=== PATIENT | male | born 1965 | race Caucasian/White ===

== ENCOUNTER 2023-12-12 14:27 | Inpatient (IN) | payer OTHER ==
[2023-12-12 15:37] VITALS: BMI 21.6
[2023-12-12] MEDS ORDERED: BISMUTH SUBSALICYLATE 524 MG/30 ML PO PRN (17:13)
[2023-12-12] MEDS ORDERED: IBUPROFEN 400 MG TABLET (FP) PO PRN (17:13)
[2023-12-12] MEDS ORDERED: hydrOXYzine PAMOATE 25 MG CAPSULE (FP) PO PRN (17:13)
[2023-12-12] MEDS ORDERED: DICYCLOMINE HCL 10 MG CAPSULE PO PRN (17:13)
[2023-12-12] MEDS ORDERED: NICOTINE POLACRILEX 2 MG GUM BUC PRN (17:13)
[2023-12-12] MEDS ORDERED: ACETAMINOPHEN 325 MG TABLET (FP) PO PRN (17:13)
[2023-12-12] MEDS ORDERED: IBUPROFEN 600 MG TABLET (FP) PO PRN (17:13)
[2023-12-12] MEDS ORDERED: BENZOCAINE/MENTHOL (CHLORASEPTIC ) LOZENGE MM PRN (17:13)
[2023-12-12] MEDS ORDERED: MAG HYDROX/AL HYDROX/SIMETH 30 ML UNIT-DOSE CUP PO PRN (17:13)
[2023-12-12] MEDS ORDERED: LOPERAMIDE HCL 2 MG CAPSULE PO PRN (17:13)
[2023-12-12] MEDS ORDERED: MAGNESIUM HYDROX 2400MG/30ML ORAL SUSPENSION 30 ML CUP PO PRN (17:13)
[2023-12-12] MEDS ORDERED: BENZONATATE 200 MG CAPSULE PO PRN (17:13)
[2023-12-12] MEDS ORDERED: guaiFENesin 600 MG TABLET.ER (FP) PO PRN (17:13)
[2023-12-12] MEDS ORDERED: ONDANSETRON *ODT* 4 MG TABLET SL PRN (17:13)
[2023-12-12] MEDS ORDERED: POLYETHYLENE GLYCOL (HEALTHYLAX) 3350 17 GM PACKET PO PRN (17:13)
[2023-12-12] MEDS: ASPIRIN COATED 81 MG TABLET.EC PO SCH (18:54)
[2023-12-12] MEDS: MELATONIN 5 MG TABLETS PO SCH (22:14)
[2023-12-12] MEDS: THIAMINE HCL 100 MG TABLET (FP) PO SCH (22:14)
[2023-12-13] MEDS: PRENATAL VITAMINS W/ FOLIC ACID TABLET (FP) PO SCH (10:25)
[2023-12-13] MEDS ORDERED: diazePAM 5 MG TABLET PO PRN (10:40)
[2023-12-13] MEDS: diazePAM 5 MG TABLET PO SCH (11:06)
[2023-12-13 15:30] LABS: POTASSIUM 4.6 mmol/L (3.5-5.1)
[2023-12-13 15:37] LABS: CALCIUM 8.4 mg/dL (8.5-10.1)
[2023-12-13 15:38] LABS: ALBUMIN 3.2 g/dl (3.4-5.0); BLOOD UREA NITROGEN 36.4 mg/dL (7-18)
[2023-12-13 15:41] LABS: CREATININE 1.5 mg/dL (0.55-1.3)
[2023-12-13 15:42] LABS: TOT PROT 7.3 g/dl (6.4-8.2)
[2023-12-13 15:43] LABS: BILIRUBIN,TOTAL 0.4 mg/dL (0.2-1)
[2023-12-13 15:44] LABS: HEMATOCRIT 36.1 % (35.4-49); HEMOGLOBIN 11.7 GM/dL (11.7-16.9); MCH 30.1 pg (25.7-33.7); MCHC 32.4 g/dl (32.0-35.9); MEAN CELL VOLUME 92.8 fl (80-96); MEAN PLT VOLUME 10.6 fl (7.5-11.1); PLATELET COUNT 318 10^3/uL (134-434); RBC 3.89 M/mm3 (4.00-5.60); RDW 14.9 % (11.9-15.9)
[2023-12-14] MEDS: METHOCARBAMOL 500 MG TABLET PO PRN (05:08)
[2023-12-14] MEDS: metoPROLOL SUCCINATE 25 MG TAB.SR.24H (FP) PO SCH (14:08)
[2023-12-14] MEDS: NIFEdipine E.R. 30 MG TABLET PO SCH (14:08)
[2023-12-14] MEDS: ASPIRIN 81 MG CHEWABLE TABLETS PO SCH (14:08)
[2023-12-14] MEDS: EMPAGLIFLOZIN (JARDIANCE) 10 MG TABLET PO SCH (14:41)
[2023-12-14] MEDS: ATORVASTATIN CA 80 MG TABLET (FP) PO SCH (22:31)
[2023-12-15] MEDS: diazePAM 5 MG TABLET PO SCH (05:57)
[2023-12-16] MEDS: diazePAM 5 MG TABLET PO SCH (05:56)
[2023-12-16 12:53] VITALS: BP 116/70; PULSE 65; RESP 18; TEMP 97.5
[2023-12-17] MEDS ORDERED: diazePAM 5 MG TABLET PO ONE (06:00)
== END 2023-12-16 11:35 | disposition left against medical advice (07) | DRG 770 ==
LOC: YASAS 14:27 → Y3N 17:40
PROVIDERS: ADMIT Allergy & Immunology; ATTEND Surgery
PROC: HZ2ZZZZ Detoxification Services for Substance Abuse Treatment (ICD-10-PCS; principal; 2023-12-12)
DX: F10.230 Alcohol dependence with withdrawal, uncomplicated (principal); F17.210 Nicotine dependence, cigarettes, uncomplicated; E78.5 Hyperlipidemia, unspecified; I10 Essential (primary) hypertension; Z59.00 Homelessness unspecified
CPT/HCPCS: 36415; 71045-TC-FY; 80053; 82962; 85027; 86780; 93005; 93010

== ENCOUNTER 2024-01-11 19:40 | Inpatient (IN) | payer BC, OTHER ==
[2024-01-11 20:04] VITALS: BMI 21.9
[2024-01-11] MEDS ORDERED: BISMUTH SUBSALICYLATE 524 MG/30 ML PO PRN (21:01)
[2024-01-11] MEDS ORDERED: IBUPROFEN 600 MG TABLET (FP) PO PRN (21:01)
[2024-01-11] MEDS ORDERED: MAGNESIUM HYDROX 2400MG/30ML ORAL SUSPENSION 30 ML CUP PO PRN (21:01)
[2024-01-11] MEDS ORDERED: DICYCLOMINE HCL 10 MG CAPSULE PO PRN (21:01)
[2024-01-11] MEDS ORDERED: BENZOCAINE/MENTHOL (CHLORASEPTIC ) LOZENGE MM PRN (21:01)
[2024-01-11] MEDS ORDERED: POLYETHYLENE GLYCOL (HEALTHYLAX) 3350 17 GM PACKET PO PRN (21:01)
[2024-01-11] MEDS ORDERED: NALOXONE HCL 0.4 MG/ML VIAL IM PRN (21:01)
[2024-01-11] MEDS ORDERED: NICOTINE POLACRILEX 2 MG GUM BUC PRN (21:01)
[2024-01-11] MEDS ORDERED: NALOXONE HCL (KLOXXADO) 8 MG SPRAY NS PRN (21:01)
[2024-01-11] MEDS ORDERED: ACETAMINOPHEN 325 MG TABLET (FP) PO PRN (21:01)
[2024-01-11] MEDS ORDERED: IBUPROFEN 400 MG TABLET (FP) PO PRN (21:01)
[2024-01-11] MEDS ORDERED: LOPERAMIDE HCL 2 MG CAPSULE PO PRN (21:01)
[2024-01-11] MEDS ORDERED: guaiFENesin 600 MG TABLET.ER (FP) PO PRN (21:01)
[2024-01-11] MEDS ORDERED: BENZONATATE 200 MG CAPSULE PO PRN (21:01)
[2024-01-11] MEDS ORDERED: ONDANSETRON *ODT* 4 MG TABLET SL PRN (21:01)
[2024-01-11] MEDS ORDERED: MAG HYDROX/AL HYDROX/SIMETH 30 ML UNIT-DOSE CUP PO PRN (21:01)
[2024-01-11] MEDS: METHOCARBAMOL 500 MG TABLET PO PRN (21:44)
[2024-01-11] MEDS: hydrOXYzine PAMOATE 25 MG CAPSULE (FP) PO PRN (21:45)
[2024-01-11] MEDS: THIAMINE 100 MG TABLET PO SCH (21:45)
[2024-01-11] MEDS: MELATONIN 5 MG TABLETS PO SCH (21:45)
[2024-01-12 09:27] LABS: HEMATOCRIT 35.1 % (35.4-49); MCH 31.4 pg (25.7-33.7); MCHC 34.3 g/dl (32.0-35.9); MEAN CELL VOLUME 91.7 fl (80-96); MEAN PLT VOLUME 9.8 fl (7.5-11.1); PLATELET COUNT 289 10^3/uL (134-434); RBC 3.83 M/mm3 (4.00-5.60); RDW 14.8 % (11.9-15.9); WHITE BLOOD COUNT 8.3 K/mm3 (4.0-10.0)
[2024-01-12 09:44] LABS: CHLORIDE 107 mmol/L (98-107); POTASSIUM 4.7 mmol/L (3.5-5.1); SODIUM 138 mmol/L (136-145)
[2024-01-12 09:56] LABS: GLUCOSE,RANDOM 94 mg/dL (74-106)
[2024-01-12 09:57] LABS: ALBUMIN 3.2 g/dl (3.4-5.0); CALCIUM 8.8 mg/dL (8.5-10.1)
[2024-01-12 09:58] LABS: ANION GAP 6 mmol/L (4-13); BLOOD UREA NITROGEN 39.6 mg/dL (7-18); CO2 24 mmol/L (21-32)
[2024-01-12 10:00] LABS: CREATININE 2.2 mg/dL (0.55-1.3); SGPT/ALT 15 U/L (13-61)
[2024-01-12 10:01] LABS: SGOT/AST 16 U/L (15-37)
[2024-01-12 10:02] LABS: BILIRUBIN,TOTAL 0.4 mg/dL (0.2-1); TOT PROT 7.2 g/dl (6.4-8.2)
[2024-01-12 10:03] LABS: ALK PHOS 94 U/L (45-117)
[2024-01-12] MEDS ORDERED: diazePAM 5 MG TABLET PO PRN (10:14)
[2024-01-12] MEDS ORDERED: metoPROLOL SUCCINATE 25 MG TAB.SR.24H (FP) PO SCH (10:30)
[2024-01-12] MEDS: metoPROLOL SUCCINATE 25 MG TAB.SR.24H (FP) PO SCH (10:52)
[2024-01-12] MEDS: PRENATAL VITAMINS W/ FOLIC ACID TABLET (FP) PO SCH (10:53)
[2024-01-12] MEDS: ASPIRIN 81 MG CHEWABLE TABLETS PO SCH (10:54)
[2024-01-12] MEDS: diazePAM 5 MG TABLET PO SCH (10:54)
[2024-01-12] MEDS: NICOTINE 14 MG/24 HOURS TOPICAL PATCH TD SCH (10:54)
[2024-01-12] MEDS: EMPAGLIFLOZIN (JARDIANCE) 10 MG TABLET PO SCH (11:42)
[2024-01-12] MEDS: ATORVASTATIN CA 80 MG TABLET (FP) PO SCH (22:27)
[2024-01-14] MEDS: diazePAM 5 MG TABLET PO SCH (05:54)
[2024-01-14 10:33] VITALS: BP 160/90; PULSE 74; RESP 18; TEMP 98.2
[2024-01-15] MEDS ORDERED: diazePAM 5 MG TABLET PO SCH (06:00)
[2024-01-16] MEDS ORDERED: diazePAM 5 MG TABLET PO ONE (06:00)
== END 2024-01-14 11:50 | disposition left against medical advice (07) | DRG 770 ==
LOC: YASAS 19:40 → Y3N 21:03
PROVIDERS: ADMIT Allergy & Immunology; ATTEND Surgery
PROC: HZ2ZZZZ Detoxification Services for Substance Abuse Treatment (ICD-10-PCS; principal; 2024-01-11)
DX: F10.230 Alcohol dependence with withdrawal, uncomplicated (principal); F17.210 Nicotine dependence, cigarettes, uncomplicated; E78.5 Hyperlipidemia, unspecified; I10 Essential (primary) hypertension; R76.11 Nonspecific reaction to tuberculin skin test without active tuberculosis
CPT/HCPCS: 36415; 80053; 80305; 80307; 85027; 86780; 93005; 93010

== ENCOUNTER 2024-03-02 13:17 | Inpatient (IN) | payer BC, OTHER ==
[2024-03-02 13:48] VITALS: BMI 22.4
[2024-03-02] MEDS ORDERED: POLYETHYLENE GLYCOL (HEALTHYLAX) 3350 17 GM PACKET PO PRN (14:02)
[2024-03-02] MEDS ORDERED: BENZONATATE 200 MG CAPSULE PO PRN (14:02)
[2024-03-02] MEDS ORDERED: guaiFENesin 600 MG TABLET.ER (FP) PO PRN (14:02)
[2024-03-02] MEDS ORDERED: ACETAMINOPHEN 325 MG TABLET (FP) PO PRN (14:02)
[2024-03-02] MEDS ORDERED: NALOXONE HCL 0.4 MG/ML VIAL IM PRN (14:02)
[2024-03-02] MEDS ORDERED: LOPERAMIDE HCL 2 MG CAPSULE PO PRN (14:02)
[2024-03-02] MEDS ORDERED: NALOXONE (NARCAN) HCL 4 MG/0.1 ML SPRAY NS PRN (14:02)
[2024-03-02] MEDS ORDERED: DICYCLOMINE HCL 10 MG CAPSULE PO PRN (14:02)
[2024-03-02] MEDS ORDERED: chlordiazePOXIDE HCL 25 MG CAPSULE PO PRN (14:02)
[2024-03-02] MEDS ORDERED: BENZOCAINE/MENTHOL (CHLORASEPTIC ) LOZENGE MM PRN (14:02)
[2024-03-02] MEDS ORDERED: IBUPROFEN 400 MG TABLET (FP) PO PRN (14:02)
[2024-03-02] MEDS ORDERED: MAGNESIUM HYDROX 2400MG/30ML ORAL SUSPENSION 30 ML CUP PO PRN (14:02)
[2024-03-02] MEDS ORDERED: IBUPROFEN 600 MG TABLET (FP) PO PRN (14:02)
[2024-03-02] MEDS ORDERED: MAG HYDROX/AL HYDROX/SIMETH 30 ML UNIT-DOSE CUP PO PRN (14:02)
[2024-03-02] MEDS ORDERED: ONDANSETRON *ODT* 4 MG TABLET SL PRN (14:02)
[2024-03-02] MEDS ORDERED: hydrALAZINE HCL 25 MG TABLET (FP) PO SCH (14:15)
[2024-03-02] MEDS: metoPROLOL SUCCINATE 25 MG TAB.SR.24H (FP) PO SCH (15:11)
[2024-03-02] MEDS: NIFEdipine E.R. 90 MG TABLET PO SCH (15:11)
[2024-03-02] MEDS ORDERED: LISINOPRIL 10 MG TABLET ONE (15:12)
[2024-03-02] MEDS ORDERED: ASPIRIN 81 MG CHEWABLE TABLETS ONE (15:12)
[2024-03-02] MEDS: LISINOPRIL 10 MG TABLET PO SCH (15:13)
[2024-03-02] MEDS: ASPIRIN 81 MG CHEWABLE TABLETS PO SCH (15:13)
[2024-03-02] MEDS: chlordiazePOXIDE HCL 25 MG CAPSULE PO SCH (17:18)
[2024-03-02] MEDS: ATORVASTATIN CA 80 MG TABLET (FP) PO SCH (22:14)
[2024-03-02] MEDS: THIAMINE 100 MG TABLET PO SCH (22:14)
[2024-03-02] MEDS: hydrALAZINE HCL 25 MG TABLET (FP) PO SCH (22:14)
[2024-03-02] MEDS: MELATONIN 5 MG TABLETS PO SCH (22:15)
[2024-03-02] MEDS: BISMUTH SUBSALICYLATE 524 MG/30 ML PO PRN (22:18)
[2024-03-03] MEDS ORDERED: diazePAM 5 MG TABLET PO PRN (09:15)
[2024-03-03] MEDS: PRENATAL VITAMINS W/ FOLIC ACID TABLET (FP) PO SCH (09:35)
[2024-03-03] MEDS: diazePAM 5 MG TABLET PO SCH (10:18)
[2024-03-03 11:45] LABS: POTASSIUM 4.3 mmol/L (3.5-5.1)
[2024-03-03 11:46] LABS: HEMATOCRIT 38.2 % (35.4-49); HEMOGLOBIN 12.7 GM/dL (11.7-16.9); MCH 31.1 pg (25.7-33.7); MCHC 33.2 g/dl (32.0-35.9); MEAN CELL VOLUME 93.6 fl (80-96); MEAN PLT VOLUME 10.4 fl (7.5-11.1); PLATELET COUNT 267 10^3/uL (134-434); RBC 4.09 M/mm3 (4.00-5.60); RDW 14.6 % (11.9-15.9); WHITE BLOOD COUNT 7.3 K/mm3 (4.0-10.0)
[2024-03-03 11:55] LABS: CREATININE 1.5 mg/dL (0.55-1.3)
[2024-03-03 11:56] LABS: TOT PROT 7.9 g/dl (6.4-8.2)
[2024-03-03 11:57] LABS: ALBUMIN 3.7 g/dl (3.4-5.0); BILIRUBIN,TOTAL 0.4 mg/dL (0.2-1); CALCIUM 8.6 mg/dL (8.5-10.1)
[2024-03-03 11:58] LABS: BLOOD UREA NITROGEN 23.5 mg/dL (7-18)
[2024-03-03 13:55] LABS: SYPHILIS W/ RPR CONF NON-REACTIVE (NONREACTIVE)
[2024-03-03 14:23] LABS: HIV INTERPRETATION NEGATIVE (NEGATIVE)
[2024-03-03] MEDS: LACTULOSE 20 GM/30 ML UDC (FOR ORAL USE ONLY) PO SCH (14:50)
[2024-03-03] MEDS: hydrOXYzine PAMOATE 25 MG CAPSULE (FP) PO PRN (22:51)
[2024-03-04] MEDS ORDERED: chlordiazePOXIDE HCL 25 MG CAPSULE PO SCH (05:00)
[2024-03-04 09:09] LABS: CREATININE 1.4 mg/dL (0.55-1.3)
[2024-03-04] MEDS: METHOCARBAMOL 500 MG TABLET PO PRN (22:41)
[2024-03-05] MEDS ORDERED: chlordiazePOXIDE HCL 10 MG CAPSULE PO PRN
[2024-03-05] MEDS ORDERED: chlordiazePOXIDE HCL 10 MG CAPSULE PO SCH (05:00)
[2024-03-05] MEDS: diazePAM 5 MG TABLET PO SCH (06:43)
[2024-03-06] MEDS ORDERED: chlordiazePOXIDE HCL 10 MG CAPSULE PO SCH (05:00)
[2024-03-06] MEDS: diazePAM 5 MG TABLET PO SCH (09:50)
[2024-03-07] MEDS ORDERED: chlordiazePOXIDE HCL 10 MG CAPSULE PO ONE (05:00)
[2024-03-07] MEDS: diazePAM 5 MG TABLET PO ONE (06:10)
[2024-03-07 06:44] VITALS: RESP 16
[2024-03-07 08:58] VITALS: BP 135/73; PULSE 46; TEMP 97.8
== END 2024-03-07 09:09 | disposition home or self-care (01) | DRG 773 ==
LOC: YASAS 13:17 → Y6N 15:03
PROVIDERS: ADMIT Allergy & Immunology; ATTEND Surgery
PROC: HZ2ZZZZ Detoxification Services for Substance Abuse Treatment (ICD-10-PCS; principal; 2024-03-02)
DX: F10.230 Alcohol dependence with withdrawal, uncomplicated (principal); F11.23 Opioid dependence with withdrawal; F17.213 Nicotine dependence, cigarettes, with withdrawal; E78.5 Hyperlipidemia, unspecified; I10 Essential (primary) hypertension; R76.11 Nonspecific reaction to tuberculin skin test without active tuberculosis; R79.89 Other specified abnormal findings of blood chemistry
CPT/HCPCS: 36415; 80053; 80305; 80307; 82140; 82565; 83036; 84520; 85027; 86780; 86803; 87389; 93005; 93010

== ENCOUNTER 2024-03-10 14:31 | Inpatient (IN) | payer OTHER ==
[2024-03-10 15:38] VITALS: BMI 23.1
[2024-03-10] MEDS ORDERED: POLYETHYLENE GLYCOL (HEALTHYLAX) 3350 17 GM PACKET PO PRN (15:39)
[2024-03-10] MEDS ORDERED: IBUPROFEN 600 MG TABLET (FP) PO PRN (15:39)
[2024-03-10] MEDS ORDERED: LOPERAMIDE HCL 2 MG CAPSULE PO PRN (15:39)
[2024-03-10] MEDS ORDERED: IBUPROFEN 400 MG TABLET (FP) PO PRN (15:39)
[2024-03-10] MEDS ORDERED: NALOXONE HCL 0.4 MG/ML VIAL IM PRN (15:39)
[2024-03-10] MEDS ORDERED: MAGNESIUM HYDROX 2400MG/30ML ORAL SUSPENSION 30 ML CUP PO PRN (15:39)
[2024-03-10] MEDS ORDERED: NALOXONE (NARCAN) HCL 4 MG/0.1 ML SPRAY NS PRN (15:39)
[2024-03-10] MEDS ORDERED: ACETAMINOPHEN 325 MG TABLET (FP) PO PRN (15:39)
[2024-03-10] MEDS ORDERED: BENZONATATE 200 MG CAPSULE PO PRN (15:39)
[2024-03-10] MEDS ORDERED: guaiFENesin 600 MG TABLET.ER (FP) PO PRN (15:39)
[2024-03-10] MEDS ORDERED: MAG HYDROX/AL HYDROX/SIMETH 30 ML UNIT-DOSE CUP PO PRN (15:39)
[2024-03-10] MEDS ORDERED: BENZOCAINE/MENTHOL (CHLORASEPTIC ) LOZENGE MM PRN (15:39)
[2024-03-10] MEDS: PRENATAL VITAMINS W/ FOLIC ACID TABLET (FP) PO SCH (16:41)
[2024-03-10] MEDS: LACTULOSE 20 GM/30 ML UDC (FOR ORAL USE ONLY) PO SCH (17:29)
[2024-03-10] MEDS: hydrALAZINE HCL 25 MG TABLET (FP) PO SCH (21:33)
[2024-03-10] MEDS: THIAMINE 100 MG TABLET PO SCH (21:33)
[2024-03-10] MEDS: MELATONIN 5 MG TABLETS PO SCH (21:34)
[2024-03-10] MEDS: hydrOXYzine PAMOATE 25 MG CAPSULE (FP) PO PRN (21:34)
[2024-03-11] MEDS: NIFEdipine E.R. 90 MG TABLET PO SCH (09:18)
[2024-03-11] MEDS: LISINOPRIL 10 MG TABLET PO SCH (09:18)
[2024-03-11] MEDS: metoPROLOL SUCCINATE 25 MG TAB.SR.24H (FP) PO SCH (09:18)
[2024-03-11] MEDS: ASPIRIN 81 MG CHEWABLE TABLETS PO SCH (09:18)
[2024-03-11 11:30] LABS: PH,URINE 5.5 (5.0-8.0); URINE APPEARANCE CLEAR; URINE BILIRUBIN NEGATIVE (NEGATIVE); URINE COLOR YELLOW; URINE GLUCOSE (UA) NEGATIVE (NEGATIVE); URINE KETONE NEGATIVE (NEGATIVE); URINE LEUK ESTERASE NEGATIVE (NEGATIVE); URINE NITRITE NEGATIVE (NEGATIVE); URINE PROTEIN NEGATIVE (NEGATIVE); URINE UROBILINOGEN 0.2 mg/dL (0.2-1.0)
[2024-03-11 11:33] LABS: HEMOGLOBIN 11.7 GM/dL (11.7-16.9); MCH 31.2 pg (25.7-33.7); MCHC 33.6 g/dl (32.0-35.9); MEAN CELL VOLUME 92.9 fl (80-96); PLATELET COUNT 290 10^3/uL (134-434); RBC 3.76 M/mm3 (4.00-5.60); RDW 14.6 % (11.9-15.9); WHITE BLOOD COUNT 7.8 K/mm3 (4.0-10.0)
[2024-03-11 11:44] LABS: CHLORIDE 112 mmol/L (98-107); POTASSIUM 4.5 mmol/L (3.5-5.1); SODIUM 143 mmol/L (136-145)
[2024-03-11 11:55] LABS: ANION GAP 5 mmol/L (4-13); BLOOD UREA NITROGEN 22.3 mg/dL (7-18); CALCIUM 8.5 mg/dL (8.5-10.1); CO2 25 mmol/L (21-32); GLUCOSE,RANDOM 106 mg/dL (74-106)
[2024-03-11 11:58] LABS: CREATININE 1.4 mg/dL (0.55-1.3); SGOT/AST 12 U/L (15-37); SGPT/ALT 16 U/L (13-61)
[2024-03-11 12:00] LABS: BILIRUBIN,TOTAL 0.4 mg/dL (0.2-1); TOT PROT 6.7 g/dl (6.4-8.2)
[2024-03-11 12:01] LABS: ALK PHOS 81 U/L (45-117)
[2024-03-11 12:27] LABS: SYPHILIS W/ RPR CONF NON-REACTIVE (NONREACTIVE)
[2024-03-11 14:05] LABS: HIV INTERPRETATION NEGATIVE (NEGATIVE)
[2024-03-15] MEDS ORDERED: LACTULOSE 20 GM/30 ML UDC (FOR ORAL USE ONLY) PO PRN (13:27)
[2024-03-15] MEDS: SUVOREXANT 10 MG TABLET PO SCH (21:21)
[2024-03-17] MEDS: RIFAXIMIN 550 MG TABLET PO SCH (21:37)
[2024-03-18] MEDS: hydrALAZINE HCL 25 MG TABLET (FP) PO SCH (21:19)
[2024-03-22 07:04] VITALS: BP 124/64; RESP 18; TEMP 96.9
[2024-03-22 07:17] VITALS: PULSE 42
[2024-03-22] MEDS ORDERED: SUVOREXANT 10 MG TABLET PO PRN (22:00)
== END 2024-03-22 07:21 | disposition home or self-care (01) | DRG 772 ==
LOC: YASAS 14:31 → Y3W 16:40
PROVIDERS: ADMIT Allergy & Immunology; ATTEND Psychiatry & Neurology Pain Medicine
PROC: HZ42ZZZ Group Counseling for Substance Abuse Treatment, Cognitive-Behavioral (ICD-10-PCS; principal; 2024-03-10)
DX: F10.20 Alcohol dependence, uncomplicated (principal); F14.20 Cocaine dependence, uncomplicated; F17.210 Nicotine dependence, cigarettes, uncomplicated; E78.5 Hyperlipidemia, unspecified; I10 Essential (primary) hypertension; R00.1 Bradycardia, unspecified; R76.11 Nonspecific reaction to tuberculin skin test without active tuberculosis; R79.89 Other specified abnormal findings of blood chemistry; Z59.00 Homelessness unspecified
CPT/HCPCS: 36415; 80053; 80305; 80307; 81003; 82140; 85027; 86780; 86803; 87389; 87811; 93005; 93010

== ENCOUNTER 2024-04-22 15:17 | Inpatient (IN) | payer BC, OTHER ==
[2024-04-22 16:47] VITALS: BMI 23.6
[2024-04-22] MEDS ORDERED: ACETAMINOPHEN 325 MG TABLET (FP) PO PRN (18:11)
[2024-04-22] MEDS ORDERED: MAGNESIUM HYDROX 2400MG/30ML ORAL SUSPENSION 30 ML CUP PO PRN (18:11)
[2024-04-22] MEDS ORDERED: BENZOCAINE/MENTHOL (CHLORASEPTIC ) LOZENGE MM PRN (18:11)
[2024-04-22] MEDS ORDERED: DICYCLOMINE HCL 10 MG CAPSULE PO PRN (18:11)
[2024-04-22] MEDS ORDERED: BENZONATATE 200 MG CAPSULE PO PRN (18:11)
[2024-04-22] MEDS ORDERED: guaiFENesin 600 MG TABLET.ER (FP) PO PRN (18:11)
[2024-04-22] MEDS ORDERED: MAG HYDROX/AL HYDROX/SIMETH 30 ML UNIT-DOSE CUP PO PRN (18:11)
[2024-04-22] MEDS ORDERED: POLYETHYLENE GLYCOL (HEALTHYLAX) 3350 17 GM PACKET PO PRN (18:11)
[2024-04-22] MEDS ORDERED: ONDANSETRON *ODT* 4 MG TABLET SL PRN (18:11)
[2024-04-22] MEDS: METHOCARBAMOL 500 MG TABLET PO PRN (19:21)
[2024-04-22] MEDS: LISINOPRIL 20 MG TABLET PO SCH (20:08)
[2024-04-22] MEDS: CLOPIDOGREL BISULFATE 75 MG TABLET (FP) PO SCH (20:23)
[2024-04-22] MEDS: THIAMINE 100 MG TABLET PO SCH (22:31)
[2024-04-22] MEDS: MELATONIN 5 MG TABLETS PO SCH (22:31)
[2024-04-22] MEDS: ATORVASTATIN CA 40 MG TABLET (FP) PO SCH (22:32)
[2024-04-23] MEDS: ASPIRIN 81 MG CHEWABLE TABLETS PO SCH (09:44)
[2024-04-23] MEDS: LOPERAMIDE HCL 2 MG CAPSULE PO PRN (09:44)
[2024-04-23] MEDS: NIFEdipine E.R. 90 MG TABLET PO SCH (09:44)
[2024-04-23] MEDS: PRENATAL VITAMINS W/ FOLIC ACID TABLET (FP) PO SCH (09:49)
[2024-04-23] MEDS ORDERED: diazePAM 5 MG TABLET PO PRN (10:32)
[2024-04-23] MEDS: diazePAM 5 MG TABLET PO SCH (10:46)
[2024-04-24] MEDS: diazePAM 5 MG TABLET PO SCH (06:23)
[2024-04-25] MEDS: diazePAM 5 MG TABLET PO SCH (05:53)
[2024-04-25 09:05] LABS: HEMATOCRIT 37.1 % (35.4-49); HEMOGLOBIN 12.4 GM/dL (11.7-16.9); MCH 30.6 pg (25.7-33.7); MCHC 33.4 g/dl (32.0-35.9); MEAN CELL VOLUME 91.7 fl (80-96); PLATELET COUNT 274 10^3/uL (134-434); RBC 4.05 M/mm3 (4.00-5.60); RDW 14.4 % (11.9-15.9); WHITE BLOOD COUNT 8.9 K/mm3 (4.0-10.0)
[2024-04-25 09:07] LABS: POTASSIUM 4.4 mmol/L (3.5-5.1)
[2024-04-25 09:12] LABS: ALBUMIN 3.1 g/dl (3.4-5.0); BLOOD UREA NITROGEN 20.9 mg/dL (7-18); CALCIUM 8.5 mg/dL (8.5-10.1)
[2024-04-25 09:15] LABS: CREATININE 1.3 mg/dL (0.55-1.3)
[2024-04-25 09:18] LABS: BILIRUBIN,TOTAL 0.4 mg/dL (0.2-1)
[2024-04-26] MEDS: diazePAM 5 MG TABLET PO ONE (06:03)
[2024-04-27 06:27] VITALS: TEMP 97.7
[2024-04-27 13:09] VITALS: BP 148/97; PULSE 73; RESP 16
== END 2024-04-27 14:01 | disposition other institution (70) | DRG 775 ==
LOC: YASAS 15:17 → Y3N 18:36
PROVIDERS: ADMIT Allergy & Immunology; ATTEND Psychiatry & Neurology Pain Medicine
PROC: HZ2ZZZZ Detoxification Services for Substance Abuse Treatment (ICD-10-PCS; principal; 2024-04-22)
DX: F10.230 Alcohol dependence with withdrawal, uncomplicated (principal); F10.220 Alcohol dependence with intoxication, uncomplicated; F17.210 Nicotine dependence, cigarettes, uncomplicated; I10 Essential (primary) hypertension; I25.10 Atherosclerotic heart disease of native coronary artery without angina pectoris; I25.2 Old myocardial infarction; G47.00 Insomnia, unspecified; Z91.013 Allergy to seafood; Z79.02 Long term (current) use of antithrombotics/antiplatelets; Z86.11 Personal history of tuberculosis; Z56.0 Unemployment, unspecified; Z59.00 Homelessness unspecified
CPT/HCPCS: 36415; 80053; 80305; 85027; 86780; 87811; 93005; 93010

== ENCOUNTER 2024-04-27 14:10 | Inpatient (IN) | payer OTHER ==
[2024-04-27] MEDS ORDERED: NALOXONE (NARCAN) HCL 4 MG/0.1 ML SPRAY NS PRN (14:23)
[2024-04-27] MEDS ORDERED: BENZONATATE 200 MG CAPSULE PO PRN (14:23)
[2024-04-27] MEDS ORDERED: MAGNESIUM HYDROX 2400MG/30ML ORAL SUSPENSION 30 ML CUP PO PRN (14:23)
[2024-04-27] MEDS ORDERED: IBUPROFEN 600 MG TABLET (FP) PO PRN (14:23)
[2024-04-27] MEDS ORDERED: MAG HYDROX/AL HYDROX/SIMETH 30 ML UNIT-DOSE CUP PO PRN (14:23)
[2024-04-27] MEDS ORDERED: guaiFENesin 600 MG TABLET.ER (FP) PO PRN (14:23)
[2024-04-27] MEDS ORDERED: ACETAMINOPHEN 325 MG TABLET (FP) PO PRN (14:23)
[2024-04-27] MEDS ORDERED: POLYETHYLENE GLYCOL (HEALTHYLAX) 3350 17 GM PACKET PO PRN (14:23)
[2024-04-27] MEDS ORDERED: BENZOCAINE/MENTHOL (CHLORASEPTIC ) LOZENGE MM PRN (14:23)
[2024-04-27] MEDS ORDERED: NALOXONE HCL 0.4 MG/ML VIAL IM PRN (14:23)
[2024-04-27] MEDS ORDERED: IBUPROFEN 400 MG TABLET (FP) PO PRN (14:23)
[2024-04-27] MEDS: ATORVASTATIN CA 40 MG TABLET (FP) PO SCH (21:31)
[2024-04-27] MEDS: MELATONIN 5 MG TABLETS PO SCH (21:32)
[2024-04-27] MEDS: traZODone HCL 50 MG TABLET (FP) PO SCH (21:32)
[2024-04-27] MEDS: THIAMINE 100 MG TABLET PO SCH (21:33)
[2024-04-28 00:23] LABS: EPI CELLS 4 /uL (0-25.1); HYALINE CASTS 0 /uL (0-3.1); PH,URINE 6.5 (5.0-8.0); URINE APPEARANCE CLEAR; URINE BACTERIA 3 /uL (0-1359); URINE BILIRUBIN NEGATIVE (NEGATIVE); URINE COLOR YELLOW; URINE GLUCOSE (UA) NEGATIVE (NEGATIVE); URINE KETONE NEGATIVE (NEGATIVE); URINE LEUK ESTERASE TRACE (NEGATIVE); URINE NITRITE NEGATIVE (NEGATIVE); URINE PROTEIN NEGATIVE (NEGATIVE); URINE RBC 1 /uL (0-23.9); URINE UROBILINOGEN 0.2 mg/dL (0.2-1.0); URINE WBC 50 /uL (0-25.8)
[2024-04-28] MEDS: PRENATAL VITAMINS W/ FOLIC ACID TABLET (FP) PO SCH (10:20)
[2024-04-28] MEDS: NIFEdipine E.R. 90 MG TABLET PO SCH (10:20)
[2024-04-28] MEDS: CLOPIDOGREL BISULFATE 75 MG TABLET (FP) PO SCH (10:22)
[2024-04-28] MEDS: metoPROLOL SUCCINATE 25 MG TAB.SR.24H (FP) PO SCH (10:22)
[2024-04-28] MEDS: ASPIRIN 81 MG CHEWABLE TABLETS PO SCH (10:22)
[2024-04-28] MEDS: LISINOPRIL 10 MG TABLET PO SCH (10:22)
[2024-04-28 11:09] LABS: POTASSIUM 4.5 mmol/L (3.5-5.1)
[2024-04-28 11:21] LABS: ALBUMIN 3.3 g/dl (3.4-5.0); BLOOD UREA NITROGEN 28.7 mg/dL (7-18); CALCIUM 8.7 mg/dL (8.5-10.1); HEMATOCRIT 36.6 % (35.4-49); HEMOGLOBIN 12.4 GM/dL (11.7-16.9); MCH 30.8 pg (25.7-33.7); MCHC 33.9 g/dl (32.0-35.9); MEAN CELL VOLUME 90.8 fl (80-96); MEAN PLT VOLUME 10.7 fl (7.5-11.1); PLATELET COUNT 254 10^3/uL (134-434); RBC 4.03 M/mm3 (4.00-5.60); RDW 14.3 % (11.9-15.9); WHITE BLOOD COUNT 6.4 K/mm3 (4.0-10.0)
[2024-04-28 11:22] LABS: BILIRUBIN,TOTAL 0.7 mg/dL (0.2-1); TOT PROT 7.4 g/dl (6.4-8.2)
[2024-04-28 11:25] LABS: CREATININE 1.4 mg/dL (0.55-1.3)
[2024-04-28 11:55] LABS: SYPHILIS W/ RPR CONF NON-REACTIVE (NONREACTIVE)
[2024-04-28] MEDS: hydrOXYzine PAMOATE 25 MG CAPSULE (FP) PO PRN (21:52)
[2024-05-05] MEDS: LOPERAMIDE HCL 2 MG CAPSULE PO PRN (08:46)
[2024-05-06 06:56] VITALS: BP 125/84; PULSE 77; RESP 16; TEMP 97.7
== END 2024-05-06 08:53 | disposition home or self-care (01) | DRG 772 ==
LOC: YASAS 14:10 → Y3NR 14:11 → Y3E 04-28 11:59
PROVIDERS: ADMIT Allergy & Immunology; ATTEND Psychiatry & Neurology Pain Medicine
PROC: HZ42ZZZ Group Counseling for Substance Abuse Treatment, Cognitive-Behavioral (ICD-10-PCS; principal; 2024-04-27)
DX: F10.20 Alcohol dependence, uncomplicated (principal); F14.20 Cocaine dependence, uncomplicated; F17.210 Nicotine dependence, cigarettes, uncomplicated; G47.00 Insomnia, unspecified; I25.10 Atherosclerotic heart disease of native coronary artery without angina pectoris; I10 Essential (primary) hypertension; I25.2 Old myocardial infarction; Z56.0 Unemployment, unspecified; Z59.00 Homelessness unspecified
CPT/HCPCS: 36415; 80053; 80307; 81003; 85027; 86780; 86803

== ENCOUNTER 2024-05-15 12:17 | Inpatient (IN) | payer OTHER ==
[2024-05-15 13:09] VITALS: BMI 23.7
[2024-05-15] MEDS ORDERED: BENZOCAINE/MENTHOL (CHLORASEPTIC ) LOZENGE MM PRN (16:33)
[2024-05-15] MEDS ORDERED: guaiFENesin 600 MG TABLET.ER (FP) PO PRN (16:33)
[2024-05-15] MEDS ORDERED: NALOXONE HCL 0.4 MG/ML VIAL IM PRN (16:33)
[2024-05-15] MEDS ORDERED: BISMUTH SUBSALICYLATE 524 MG/30 ML PO PRN (16:33)
[2024-05-15] MEDS ORDERED: IBUPROFEN 400 MG TABLET (FP) PO PRN (16:33)
[2024-05-15] MEDS ORDERED: MAG HYDROX/AL HYDROX/SIMETH 30 ML UNIT-DOSE CUP PO PRN (16:33)
[2024-05-15] MEDS ORDERED: BENZONATATE 200 MG CAPSULE PO PRN (16:33)
[2024-05-15] MEDS ORDERED: NALOXONE (NARCAN) HCL 4 MG/0.1 ML SPRAY NS PRN (16:33)
[2024-05-15] MEDS ORDERED: POLYETHYLENE GLYCOL (HEALTHYLAX) 3350 17 GM PACKET PO PRN (16:33)
[2024-05-15] MEDS ORDERED: DICYCLOMINE HCL 10 MG CAPSULE PO PRN (16:33)
[2024-05-15] MEDS ORDERED: IBUPROFEN 600 MG TABLET (FP) PO PRN (16:33)
[2024-05-15] MEDS ORDERED: MAGNESIUM HYDROX 2400MG/30ML ORAL SUSPENSION 30 ML CUP PO PRN (16:33)
[2024-05-15] MEDS ORDERED: ONDANSETRON *ODT* 4 MG TABLET SL PRN (16:33)
[2024-05-15] MEDS ORDERED: diazePAM 5 MG TABLET PO PRN (16:33)
[2024-05-15] MEDS ORDERED: LOPERAMIDE HCL 2 MG CAPSULE PO PRN (16:33)
[2024-05-15] MEDS ORDERED: ACETAMINOPHEN 325 MG TABLET (FP) PO PRN (16:33)
[2024-05-15] MEDS: LISINOPRIL 10 MG TABLET PO SCH (17:57)
[2024-05-15] MEDS: CLOPIDOGREL BISULFATE 75 MG TABLET (FP) PO SCH (20:01)
[2024-05-15] MEDS: NIFEdipine E.R. 90 MG TABLET PO SCH (20:02)
[2024-05-15] MEDS: diazePAM 5 MG TABLET PO SCH (23:09)
[2024-05-15] MEDS: THIAMINE 100 MG TABLET PO SCH (23:10)
[2024-05-15] MEDS: MELATONIN 5 MG TABLETS PO SCH (23:10)
[2024-05-15] MEDS: ATORVASTATIN CA 40 MG TABLET (FP) PO SCH (23:10)
[2024-05-16 09:23] LABS: HEMATOCRIT 35.5 % (35.4-49); HEMOGLOBIN 12.2 GM/dL (11.7-16.9); MCH 31.2 pg (25.7-33.7); MCHC 34.4 g/dl (32.0-35.9); MEAN CELL VOLUME 90.6 fl (80-96); MEAN PLT VOLUME 9.3 fl (7.5-11.1); PLATELET COUNT 265 10^3/uL (134-434); RBC 3.92 M/mm3 (4.00-5.60); RDW 14.5 % (11.9-15.9)
[2024-05-16 09:24] LABS: CHLORIDE 110 mmol/L (98-107); POTASSIUM 4.6 mmol/L (3.5-5.1); SODIUM 141 mmol/L (136-145)
[2024-05-16 09:26] LABS: CALCIUM 8.4 mg/dL (8.5-10.1)
[2024-05-16 09:27] LABS: ALBUMIN 3.1 g/dl (3.4-5.0); ANION GAP 5 mmol/L (4-13); BLOOD UREA NITROGEN 16.4 mg/dL (7-18); CO2 25 mmol/L (21-32); GLUCOSE,RANDOM 87 mg/dL (74-106)
[2024-05-16 09:30] LABS: CREATININE 1.3 mg/dL (0.55-1.3); SGOT/AST 15 U/L (15-37); SGPT/ALT 17 U/L (13-61)
[2024-05-16 09:31] LABS: BILIRUBIN,TOTAL 0.7 mg/dL (0.2-1); TOT PROT 7.1 g/dl (6.4-8.2)
[2024-05-16 09:33] LABS: ALK PHOS 98 U/L (45-117)
[2024-05-16] MEDS: PRENATAL VITAMINS W/ FOLIC ACID TABLET (FP) PO SCH (10:25)
[2024-05-16] MEDS: ASPIRIN 81 MG CHEWABLE TABLETS PO SCH (10:25)
[2024-05-16] MEDS: hydrOXYzine PAMOATE 25 MG CAPSULE (FP) PO PRN (17:05)
[2024-05-16] MEDS: cloNIDine HCL 0.1 MG TABLET PO PRN (18:07)
[2024-05-16] MEDS: METHOCARBAMOL 500 MG TABLET PO PRN (22:47)
[2024-05-17] MEDS: diazePAM 5 MG TABLET PO SCH (05:33)
[2024-05-17] MEDS: LISINOPRIL 10 MG TABLET PO SCH (10:49)
[2024-05-17] MEDS: amLODIPine BESYLATE 5 MG TABLET (FP) PO SCH (11:29)
[2024-05-18] MEDS: diazePAM 5 MG TABLET PO SCH (05:17)
[2024-05-18] MEDS: traZODone HCL 50 MG TABLET (FP) PO PRN (22:10)
[2024-05-19] MEDS: diazePAM 5 MG TABLET PO ONE (06:04)
[2024-05-20 06:06] VITALS: RESP 16
[2024-05-20 09:36] VITALS: BP 134/90; PULSE 60; TEMP 96.8
== END 2024-05-20 10:50 | disposition home or self-care (01) | DRG 774 ==
LOC: YASAS 12:17 → Y3N 21:06
PROVIDERS: ADMIT Allergy & Immunology; ATTEND Surgery
PROC: HZ2ZZZZ Detoxification Services for Substance Abuse Treatment (ICD-10-PCS; principal; 2024-05-15)
DX: F10.230 Alcohol dependence with withdrawal, uncomplicated (principal); F14.20 Cocaine dependence, uncomplicated; F17.210 Nicotine dependence, cigarettes, uncomplicated; F19.282 Other psychoactive substance dependence with psychoactive substance-induced sleep disorder; G47.00 Insomnia, unspecified; I25.10 Atherosclerotic heart disease of native coronary artery without angina pectoris; I10 Essential (primary) hypertension; I25.2 Old myocardial infarction; E78.5 Hyperlipidemia, unspecified; R79.89 Other specified abnormal findings of blood chemistry; Z86.11 Personal history of tuberculosis; Z59.00 Homelessness unspecified
CPT/HCPCS: 36415; 80053; 80305; 80307; 85027; 86780; 93005; 93010

== ENCOUNTER 2024-06-29 14:15 | Inpatient (IN) | payer OTHER ==
[2024-06-29 16:32] VITALS: BMI 22.9
[2024-06-29] MEDS ORDERED: LOPERAMIDE HCL 2 MG CAPSULE PO PRN (17:12)
[2024-06-29] MEDS ORDERED: IBUPROFEN 400 MG TABLET (FP) PO PRN (17:12)
[2024-06-29] MEDS ORDERED: BENZOCAINE/MENTHOL (CHLORASEPTIC ) LOZENGE MM PRN (17:12)
[2024-06-29] MEDS ORDERED: DICYCLOMINE HCL 10 MG CAPSULE PO PRN (17:12)
[2024-06-29] MEDS ORDERED: BENZONATATE 200 MG CAPSULE PO PRN (17:12)
[2024-06-29] MEDS ORDERED: ONDANSETRON *ODT* 4 MG TABLET SL PRN (17:12)
[2024-06-29] MEDS ORDERED: IBUPROFEN 600 MG TABLET (FP) PO PRN (17:12)
[2024-06-29] MEDS ORDERED: NICOTINE POLACRILEX 2 MG GUM BUC PRN (17:12)
[2024-06-29] MEDS ORDERED: MAG HYDROX/AL HYDROX/SIMETH 30 ML UNIT-DOSE CUP PO PRN (17:12)
[2024-06-29] MEDS ORDERED: MAGNESIUM HYDROX 2400MG/30ML ORAL SUSPENSION 30 ML CUP PO PRN (17:12)
[2024-06-29] MEDS ORDERED: NICOTINE POLACRILEX 2 MG LOZENGE BC PRN (17:12)
[2024-06-29] MEDS ORDERED: POLYETHYLENE GLYCOL (HEALTHYLAX) 3350 17 GM PACKET PO PRN (17:12)
[2024-06-29] MEDS ORDERED: ACETAMINOPHEN 325 MG TABLET (FP) PO PRN (17:12)
[2024-06-29] MEDS: MELATONIN 5 MG TABLETS PO SCH (22:23)
[2024-06-29] MEDS: METHOCARBAMOL 500 MG TABLET PO PRN (22:24)
[2024-06-29] MEDS: THIAMINE 100 MG TABLET PO SCH (22:24)
[2024-06-30] MEDS ORDERED: diazePAM 5 MG TABLET PO PRN (10:27)
[2024-06-30] MEDS: diazePAM 5 MG TABLET PO SCH (10:34)
[2024-06-30] MEDS: PRENATAL VITAMINS W/ FOLIC ACID TABLET (FP) PO SCH (10:34)
[2024-06-30] MEDS: guaiFENesin 600 MG TABLET.ER (FP) PO PRN (10:35)
[2024-06-30 14:43] LABS: HEMATOCRIT 36.9 % (35.4-49); HEMOGLOBIN 12.4 GM/dL (11.7-16.9); MCH 30.4 pg (25.7-33.7); MCHC 33.6 g/dl (32.0-35.9); MEAN CELL VOLUME 90.6 fl (80-96); MEAN PLT VOLUME 9.9 fl (7.5-11.1); PLATELET COUNT 287 10^3/uL (134-434); RBC 4.08 M/mm3 (4.00-5.60); RDW 15.6 % (11.9-15.9); WHITE BLOOD COUNT 6.8 K/mm3 (4.0-10.0)
[2024-06-30 15:04] LABS: CHLORIDE 116 mmol/L (98-107); POTASSIUM 4.6 mmol/L (3.5-5.1); SODIUM 143 mmol/L (136-145)
[2024-06-30 15:23] LABS: ALBUMIN 3.2 g/dl (3.4-5.0)
[2024-06-30 15:25] LABS: BLOOD UREA NITROGEN 21.5 mg/dL (7-18)
[2024-06-30 15:26] LABS: ANION GAP 5 mmol/L (4-13); CALCIUM 8.8 mg/dL (8.5-10.1); CO2 22 mmol/L (21-32)
[2024-06-30 15:27] LABS: GLUCOSE,RANDOM 92 mg/dL (74-106)
[2024-06-30 15:29] LABS: CREATININE 1.3 mg/dL (0.55-1.3); SGPT/ALT 14 U/L (13-61)
[2024-06-30 15:31] LABS: BILIRUBIN,TOTAL 0.3 mg/dL (0.2-1)
[2024-06-30 15:32] LABS: ALK PHOS 83 U/L (45-117); TOT PROT 6.6 g/dl (6.4-8.2)
[2024-06-30 15:50] LABS: SGOT/AST 11 U/L (15-37)
[2024-06-30] MEDS: BISMUTH SUBSALICYLATE 524 MG/30 ML PO PRN (17:15)
[2024-06-30] MEDS: hydrALAZINE HCL 25 MG TABLET (FP) PO ONE (20:59)
[2024-06-30] MEDS: traZODone HCL 50 MG TABLET (FP) PO SCH (22:20)
[2024-06-30] MEDS: ATORVASTATIN CA 40 MG TABLET (FP) PO SCH (22:20)
[2024-07-01] MEDS: NIFEdipine E.R. 90 MG TABLET PO SCH (09:38)
[2024-07-01] MEDS: metoPROLOL SUCCINATE 25 MG TAB.SR.24H (FP) PO SCH (09:38)
[2024-07-01] MEDS: LISINOPRIL 10 MG TABLET PO SCH (09:38)
[2024-07-01] MEDS: ASPIRIN 81 MG CHEWABLE TABLETS PO SCH (09:38)
[2024-07-01] MEDS: CLOPIDOGREL BISULFATE 75 MG TABLET (FP) PO SCH (09:38)
[2024-07-02] MEDS: diazePAM 5 MG TABLET PO SCH (05:26)
[2024-07-02] MEDS: AMOX TR/POT CLAV 875MG/125MG TABLETS (FP) PO SCH (17:31)
[2024-07-03] MEDS: diazePAM 5 MG TABLET PO SCH (06:06)
[2024-07-03] MEDS: P-EPHED 60MG/TRIPROLIDI 2.5MG TABLET PO PRN (14:49)
[2024-07-04 06:10] VITALS: TEMP 97.7
[2024-07-04] MEDS: diazePAM 5 MG TABLET PO ONE (06:20)
[2024-07-04 09:04] VITALS: BP 151/88; PULSE 73; RESP 19
== END 2024-07-04 09:27 | disposition home or self-care (01) | DRG 774 ==
LOC: YASAS 14:15 → Y3N 18:43
PROVIDERS: ADMIT Allergy & Immunology; ATTEND Allergy & Immunology
PROC: HZ2ZZZZ Detoxification Services for Substance Abuse Treatment (ICD-10-PCS; principal; 2024-06-29)
DX: F10.230 Alcohol dependence with withdrawal, uncomplicated (principal); F14.20 Cocaine dependence, uncomplicated; F17.210 Nicotine dependence, cigarettes, uncomplicated; F19.282 Other psychoactive substance dependence with psychoactive substance-induced sleep disorder; I25.10 Atherosclerotic heart disease of native coronary artery without angina pectoris; I10 Essential (primary) hypertension; I25.2 Old myocardial infarction; R05.9 Cough, unspecified
CPT/HCPCS: 0241U-QW; 36415; 71046-TC-FY; 80053; 80305; 80307; 85027; 87045; 87046

== ENCOUNTER 2024-07-21 11:35 | Inpatient (IN) | payer OTHER ==
[2024-07-21 11:58] VITALS: BMI 22.6
[2024-07-21] MEDS ORDERED: ACETAMINOPHEN 325 MG TABLET (FP) PO PRN (12:15)
[2024-07-21] MEDS ORDERED: BENZONATATE 200 MG CAPSULE PO PRN (12:15)
[2024-07-21] MEDS ORDERED: MAGNESIUM HYDROX 2400MG/30ML ORAL SUSPENSION 30 ML CUP PO PRN (12:15)
[2024-07-21] MEDS ORDERED: LOPERAMIDE HCL 2 MG CAPSULE PO PRN (12:15)
[2024-07-21] MEDS ORDERED: MAG HYDROX/AL HYDROX/SIMETH 30 ML UNIT-DOSE CUP PO PRN (12:15)
[2024-07-21] MEDS ORDERED: guaiFENesin 600 MG TABLET.ER (FP) PO PRN (12:15)
[2024-07-21] MEDS ORDERED: P-EPHED 60MG/TRIPROLIDI 2.5MG TABLET PO PRN (12:15)
[2024-07-21] MEDS ORDERED: NICOTINE POLACRILEX 2 MG GUM BUC PRN (12:15)
[2024-07-21] MEDS ORDERED: POLYETHYLENE GLYCOL (HEALTHYLAX) 3350 17 GM PACKET PO PRN (12:15)
[2024-07-21] MEDS ORDERED: NICOTINE POLACRILEX 2 MG LOZENGE BC PRN (12:15)
[2024-07-21] MEDS ORDERED: ONDANSETRON *ODT* 4 MG TABLET SL PRN (12:15)
[2024-07-21] MEDS ORDERED: BENZOCAINE/MENTHOL (CHLORASEPTIC ) LOZENGE MM PRN (12:15)
[2024-07-21] MEDS: hydrOXYzine PAMOATE 25 MG CAPSULE (FP) PO PRN (22:35)
[2024-07-21] MEDS: THIAMINE 100 MG TABLET PO SCH (22:35)
[2024-07-21] MEDS: MELATONIN 5 MG TABLETS PO SCH (22:35)
[2024-07-21] MEDS: METHOCARBAMOL 500 MG TABLET PO PRN (22:36)
[2024-07-21] MEDS: traZODone HCL 50 MG TABLET (FP) PO SCH (22:36)
[2024-07-21] MEDS: ATORVASTATIN CA 40 MG TABLET (FP) PO SCH (22:36)
[2024-07-22] MEDS: metoPROLOL SUCCINATE 25 MG TAB.SR.24H (FP) PO SCH (10:40)
[2024-07-22] MEDS: ASPIRIN 81 MG CHEWABLE TABLETS PO SCH (10:40)
[2024-07-22] MEDS: CLOPIDOGREL BISULFATE 75 MG TABLET (FP) PO SCH (10:40)
[2024-07-22] MEDS: PRENATAL VITAMINS W/ FOLIC ACID TABLET (FP) PO SCH (10:41)
[2024-07-22] MEDS: DICYCLOMINE HCL 10 MG CAPSULE PO PRN (22:50)
[2024-07-23] MEDS ORDERED: diazePAM 5 MG TABLET PO PRN (08:54)
[2024-07-23] MEDS: diazePAM 5 MG TABLET PO ONE (09:45)
[2024-07-23] MEDS: diazePAM 5 MG TABLET PO SCH (17:50)
[2024-07-23] MEDS: LISINOPRIL 10 MG TABLET PO SCH (19:21)
[2024-07-23] MEDS: NIFEdipine E.R. 90 MG TABLET PO SCH (19:21)
[2024-07-24 21:30] VITALS: TEMP 97.8
[2024-07-25] MEDS: diazePAM 5 MG TABLET PO SCH (06:11)
[2024-07-25 09:09] VITALS: BP 147/91; PULSE 70; RESP 18
[2024-07-25 10:25] LABS: EOS % 3.9 % (0-4.5); HEMOGLOBIN 12.3 GM/dL (11.7-16.9); MCH 30.8 pg (25.7-33.7); MCHC 33.2 g/dl (32.0-35.9); MEAN CELL VOLUME 92.8 fl (80-96); MEAN PLT VOLUME 9.9 fl (7.5-11.1); MONO % 7.4 % (3.8-10.2); NEUT % 62.7 % (42.8-82.8); PLATELET COUNT 264 10^3/uL (134-434); RBC 3.99 M/mm3 (4.00-5.60); RDW 15.7 % (11.9-15.9); WHITE BLOOD COUNT 7.9 K/mm3 (4.0-10.0)
[2024-07-25 10:35] LABS: POTASSIUM 4.5 mmol/L (3.5-5.1)
[2024-07-25 10:37] LABS: ALBUMIN 2.9 g/dl (3.4-5.0); BLOOD UREA NITROGEN 16.9 mg/dL (7-18)
[2024-07-25 10:40] LABS: CREATININE 1.3 mg/dL (0.55-1.3)
[2024-07-25 10:42] LABS: BILIRUBIN,TOTAL 0.3 mg/dL (0.2-1); TOT PROT 6.6 g/dl (6.4-8.2)
[2024-07-25 10:50] LABS: CALCIUM 8.5 mg/dL (8.5-10.1)
[2024-07-25] MEDS: NALOXONE (NYS OPIOID OVERDOSE PROGRAM) 4 MG/0.1 ML SPRAY NS SCH (12:03)
[2024-07-26] MEDS ORDERED: diazePAM 5 MG TABLET PO SCH (06:00)
[2024-07-27] MEDS ORDERED: diazePAM 5 MG TABLET PO ONE (06:00)
== END 2024-07-25 12:06 | disposition home or self-care (01) | DRG 774 ==
LOC: YASAS 11:35 → Y6N 13:39
PROVIDERS: ADMIT Allergy & Immunology; ATTEND Surgery
PROC: HZ2ZZZZ Detoxification Services for Substance Abuse Treatment (ICD-10-PCS; principal; 2024-07-21)
DX: F10.230 Alcohol dependence with withdrawal, uncomplicated (principal); F14.20 Cocaine dependence, uncomplicated; F17.210 Nicotine dependence, cigarettes, uncomplicated; F19.282 Other psychoactive substance dependence with psychoactive substance-induced sleep disorder; F32.A Depression, unspecified; E78.5 Hyperlipidemia, unspecified; G47.00 Insomnia, unspecified; I25.10 Atherosclerotic heart disease of native coronary artery without angina pectoris; I10 Essential (primary) hypertension; I25.2 Old myocardial infarction; Z86.11 Personal history of tuberculosis
CPT/HCPCS: 36415; 80053; 80305; 80307; 85025; 86780

== ENCOUNTER 2025-01-28 16:33 | Inpatient (IN) | payer OTHER ==
[2025-01-28 17:37] VITALS: BMI 22.4
[2025-01-28] MEDS ORDERED: BENZOCAINE/MENTHOL (CHLORASEPTIC ) LOZENGE MM PRN (18:25)
[2025-01-28] MEDS ORDERED: BENZONATATE 200 MG CAPSULE PO PRN (18:25)
[2025-01-28] MEDS ORDERED: hydrOXYzine PAMOATE 25 MG CAPSULE (FP) PO PRN (18:25)
[2025-01-28] MEDS ORDERED: MAGNESIUM HYDROX 2400MG/30ML ORAL SUSPENSION 30 ML CUP PO PRN (18:25)
[2025-01-28] MEDS ORDERED: NALOXONE (NARCAN) HCL 4 MG/0.1 ML SPRAY NS PRN (18:25)
[2025-01-28] MEDS ORDERED: METHOCARBAMOL 500 MG TABLET PO PRN (18:25)
[2025-01-28] MEDS ORDERED: DICYCLOMINE HCL 10 MG CAPSULE PO PRN (18:25)
[2025-01-28] MEDS ORDERED: NICOTINE POLACRILEX 2 MG GUM BUC PRN (18:25)
[2025-01-28] MEDS ORDERED: MAG HYDROX/AL HYDROX/SIMETH 30 ML UNIT-DOSE CUP PO PRN (18:25)
[2025-01-28] MEDS ORDERED: POLYETHYLENE GLYCOL (HEALTHYLAX) 3350 17 GM PACKET PO PRN (18:25)
[2025-01-28] MEDS ORDERED: guaiFENesin 600 MG TABLET.ER (FP) PO PRN (18:25)
[2025-01-28] MEDS ORDERED: ONDANSETRON *ODT* 4 MG TABLET SL PRN (18:25)
[2025-01-28] MEDS ORDERED: LOPERAMIDE HCL 2 MG CAPSULE PO PRN (18:25)
[2025-01-28] MEDS ORDERED: ACETAMINOPHEN 325 MG TABLET (FP) PO PRN (18:25)
[2025-01-28] MEDS: diazePAM 5 MG TABLET PO PRN (20:30)
[2025-01-28] MEDS: LISINOPRIL 20 MG TABLET PO ONE (20:38)
[2025-01-28] MEDS: MELATONIN 5 MG TABLETS PO SCH (22:04)
[2025-01-28] MEDS: THIAMINE 100 MG TABLET PO SCH (22:04)
[2025-01-28] MEDS: diazePAM 5 MG TABLET PO SCH (23:42)
[2025-01-29 08:16] LABS: CHLORIDE 108 mmol/L (98-107); POTASSIUM 4.4 mmol/L (3.5-5.1); SODIUM 141 mmol/L (136-145)
[2025-01-29 08:17] LABS: CALCIUM 8.7 mg/dL (8.5-10.1)
[2025-01-29 08:18] LABS: ANION GAP 5 mmol/L (4-13); BLOOD UREA NITROGEN 27.8 mg/dL (7-18); CO2 28 mmol/L (21-32); GLUCOSE,RANDOM 95 mg/dL (74-106)
[2025-01-29 08:21] LABS: CREATININE 1.6 mg/dL (0.55-1.3); SGOT/AST 15 U/L (15-37); SGPT/ALT 19 U/L (13-61)
[2025-01-29 08:22] LABS: BILIRUBIN,TOTAL 0.3 mg/dL (0.2-1); TOT PROT 6.5 g/dl (6.4-8.2)
[2025-01-29 08:23] LABS: HEMATOCRIT 39.9 % (40.1-51.0); HEMOGLOBIN 13.1 g/dL (13.7-17.5); MCHC 32.8 g/dl (32.3-36.5); MEAN CELL VOLUME 93.9 fl (79.0-92.2); MEAN PLT VOLUME 12.1 fl (9.4-12.4); PLATELET COUNT 227 x10^3/uL (163-337); RDW 13.7 % (12.2-16.1)
[2025-01-29 08:24] LABS: ALK PHOS 75 U/L (45-117)
[2025-01-29] MEDS: PRENATAL VITAMINS W/ FOLIC ACID TABLET (FP) PO SCH (10:19)
[2025-01-29] MEDS: traZODone HCL 50 MG TABLET (FP) PO SCH (22:17)
[2025-01-30] MEDS: diazePAM 5 MG TABLET PO SCH (05:35)
[2025-01-30] MEDS: NALTREXONE HCL 50 MG TABLET PO SCH (10:17)
[2025-01-30] MEDS: LISINOPRIL 10 MG TABLET PO SCH (17:31)
[2025-01-30] MEDS: NIFEdipine E.R. 90 MG TABLET PO SCH (17:49)
[2025-01-30] MEDS: cloNIDine HCL 0.1 MG TABLET PO PRN (18:54)
[2025-01-30] MEDS: ATORVASTATIN CA 40 MG TABLET (FP) PO SCH (22:27)
[2025-01-31] MEDS: diazePAM 5 MG TABLET PO SCH (06:25)
[2025-01-31] MEDS: metoPROLOL SUCCINATE 25 MG TAB.SR.24H (FP) PO SCH (09:46)
[2025-01-31] MEDS: CLOPIDOGREL BISULFATE 75 MG TABLET (FP) PO SCH (09:46)
[2025-01-31] MEDS: ASPIRIN 81 MG CHEWABLE TABLETS PO SCH (09:47)
[2025-01-31 17:57] VITALS: RESP 16
[2025-02-01] MEDS: diazePAM 5 MG TABLET PO ONE (05:49)
[2025-02-01 06:04] VITALS: BP 121/84; PULSE 69; TEMP 98
== END 2025-02-01 09:45 | disposition home or self-care (01) | DRG 774 ==
LOC: YASAS 16:33 → Y3N 19:55
PROVIDERS: ADMIT Allergy & Immunology; ATTEND Allergy & Immunology
PROC: HZ2ZZZZ Detoxification Services for Substance Abuse Treatment (ICD-10-PCS; principal; 2025-01-28)
DX: F10.230 Alcohol dependence with withdrawal, uncomplicated (principal); F14.20 Cocaine dependence, uncomplicated; F17.210 Nicotine dependence, cigarettes, uncomplicated; F19.282 Other psychoactive substance dependence with psychoactive substance-induced sleep disorder; F41.9 Anxiety disorder, unspecified; I25.10 Atherosclerotic heart disease of native coronary artery without angina pectoris; I10 Essential (primary) hypertension; I25.2 Old myocardial infarction; E78.5 Hyperlipidemia, unspecified; Z86.11 Personal history of tuberculosis
CPT/HCPCS: 36415; 80053; 80305; 80307; 85027; 86780; 93005; 93010